=== PATIENT | female | born 1975 ===

== ENCOUNTER → 2016-12-11 | Outpatient (CLI) | payer BC ==
--- NOTE | 2016-12-11 16:45 | MAMMOGRAPHY REPORT ---
UNILATERAL LEFT DIGITAL DIAGNOSTIC MAMMOGRAM TOMOSYNTHESIS WITH CAD AND TARGETED LEFT ULTRASOUND: CLINICAL HISTORY: 40-year-old woman with unknown family history of breast cancer and personal histor y of subpectoral implants presents for follow-up of probably benign punctate microcalcifications tyrone ntified in the anterior left breast and probably benign fibrocystic changes seen on ultrasound. TECHNIQUE: Implant displaced left CC and MLO tomosynthesis images and reconstructed C-view as well a s spot magnification left CC and ML views were obtained. Current study was also evaluated with a [employer] Aided Detection (CAD) system. COMPARISON: Comparison is made to exams dated: 06/03/2016 mammogram, 06/03/2016 ultrasound - [facility], 03/03/2015 mammogram, and 03/03/2015 ultrasound. BREAST COMPOSITION: The tissue of the left breast is extremely dense, which lowers the sensitivity of mammography. FINDINGS: The parenchymal pattern of the left breast is similar to the prior mammogram dated 016. There is stable asymmetry in the subareolar left breast. Microcalcifications are again seen a nd were reevaluated with spot magnification views. In the anterior subareolar left breast, there ar e a few groupings of punctate microcalcifications. The largest grouping in the anterior left breast , 2.7 cm from the nipple measures 2.7 mm. The microcalcifications are unchanged in number and confi guration when comparing to the spot magnification views obtained 06/03/2016 and most likely represen t benign fibrocystic changes. A few other punctate and layering microcalcifications are scattered i n the visualized left breast. However longer stability as needed and repeat spot magnification view s are recommended in 6 months. No focal areas of architectural distortion, new suspicious mass or n ew suspicious microcalcifications are seen on the implant displaced tomosynthesis images. Real-time high-resolution ultrasound was performed throughout the left breast. Numerous anechoic cy sts are again seen. In particular in the 11:00 periareolar left breast, there is a benign anechoic simple cyst measuring 7.1 x 3.9 x 6.6 mm. Another oval parallel circumscribed anechoic cyst is iden tified in the 9:00 left breast, 1 cm from the nipple, measuring 5.6 x 2.1 x 4.3 mm. An anechoic ova l parallel cyst in the 8:00 left breast, 1 cm from the nipple, measures 4.3 x 2.4 x 4.8 mm. A nearl y anechoic cyst is identified in the 2:00 left breast, 3 cm from the nipple, measuring 3.4 x 2.6 x 2 .2 mm. No suspicious solid masses identified. No suspicious solid or cystic mass is identified in the retroareolar left breast on ultrasound. IMPRESSION: ACR-BI-RADS CATEGORY 3: PROBABLY BENIGN, TARGETED ULTRASOUND ACR-BI-RADS CATEGORY 3: FL OBABLY BENIGN 1. A few small groupings of punctate microcalcifications in the anterior subareolar left breast are stable comparing to spot magnification views obtained on 06/03/2016. Comparing back to prior full- field mammograms, many of these microcalcifications were also likely present on the 2014 exam and th ey most likely represent fibrocystic changes. However, another short interval follow-up diagnostic left mammogram including spot magnification views is recommended in 6 months. Annual bilateral mamm ography is also due at that time. 2. There are scattered simple cysts throughout the left breast on ultrasound, without evidence of a suspicious solid mass. Bilateral complete ultrasound could also be performed at the time of follow -up in 6 months for additional screening, given the unknown family history of breast cancer and extr chan dense breasts. These results and recommendations were discussed with the patient at the time of the exam. She tent atively scheduled a follow-up appointment prior to leaving our department. Approximately 10% of breast cancers are not detected with mammography. A negative mammographic repor t should not delay biopsy if a clinically suggestive mass is present. Marcia Saleem M.D. ay/:12/11/2016 15:06:45 Mystery Shopper: Natasha HIRSCH([place])([place]), [facility] letter sent: Follow Up Recommended 3 BI-RADS Code: ACR-BI-RADS Category 3: Probably Benign Ultrasound BI-RADS: ACR-BI-RADS Category 3: P robably Benign
== END | disposition home or self-care (01) ==
LOC: C.MAMM 09:00
PROVIDERS: ATTEND Obstetrics & Gynecology
DX: R92.0 Mammographic microcalcification found on diagnostic imaging of breast (principal); N63 Unspecified lump in breast

== ENCOUNTER → 2017-06-16 | Outpatient (CLI) | payer BC ==
--- NOTE | 2017-06-16 15:51 | MAMMOGRAPHY REPORT ---
BILATERAL DIGITAL DIAGNOSTIC MAMMOGRAM TOMOSYNTHESIS WITH CAD AND BILATERAL ULTRASOUND: 06/16/2017 CLINICAL HISTORY: 41-year-old woman presents for annual bilateral mammography. Also diagnostic follo w-up of probably benign microcalcifications in the anterior left breast, and complete bilateral breas t ultrasound given the history of dense breasts and unknown family history of breast cancer. TECHNIQUE: Bilateral CC and MLO views of the breasts with and without implant displacement views were obtained; tomosynthesis was performed on the implant displaced views. Spot magnification CC and ML views of each breast were also obtained for microcalcification evaluation. Current study was also ev aluated with a Computer Aided Detection (CAD) system. COMPARISON: Comparison is made to exams dated: 12/11/2016 mammogram, 12/11/2016 ultrasound, 06/03/2016 mammogram, 06/03/2016 ultrasound - [facility], 03/03/2015 mammogram, and 03/03/2015 ul trasound. BREAST COMPOSITION: The tissue of both breasts is extremely dense, which lowers the sensitivity of m ammography. FINDINGS: Bilateral subpectoral silicone implants are stable comparing to prior exams. No obvious n ew spiculated or irregular mass, focal area of architectural distortion or developing asymmetry is id entified. There are grouped punctate and amorphous microcalcifications in the 4:00 to 5:00 anterior subareolar left breast that appear stable dating back to the spot magnification views obtained 2015 but not definitely seen on the 03/03/2015 mammograms. The dominant grouping measures 5 mm. Non e definitively demonstrate layering to confirm benign milk of calcium. These calcifications remain i ndeterminate and we discussed options of further close follow-up versus tissue sampling for definitiv e characterization. Spot magnification views were also obtained in the right breast for a small, 2 m m grouping of microcalcifications in the lower outer quadrant. These microcalcifications change shap e and layer on the spot magnification ML view suggesting benign milk of calcium. They appear smudgy on the spot magnification CC view, also suggesting benignity. Real-time high-resolution sonographic evaluation was performed throughout each breast including the r ight and left axilla and retroareolar aspect of the breasts. The breast parenchymal echotexture is h eterogeneousdense. Morphologically normal lymph nodes are identified in the right and left axilla, without evidence of suspicious adenopathy. Several scattered cysts and small cyst clusters are ident ified in both breasts. In the left 2:00 breast, 2 cm from the nipple, there is an oval benign anecho ic simple cyst measuring 4.3 x 3.1 x 4.1 mm, with prominent posterior acoustic enhancement. Another oval anechoic cyst is identified in the 8:00 left breast, 1 cm from the nipple, measuring 3.7 x 2.9 x 5.1 mm. In anechoic oval parallel cyst with posterior acoustic enhancement is identified in the 11: 00 periareolar left breast measuring 9.6 x 4.8 x 6.0 millimeters. The previously observed cysts in t he 1:30 and 2:00 axis of the left breast are not seen on the current exam and have likely resolved. In the 4:00 right breast, 3 cm from the nipple, there is a lobulated cluster of small anechoic cysts measuring 4.7 x 2.4 x 7.6 mm. In the 6:00 right breast, 2 cm from the nipple, a 6.4 x 4.7 x 5.8 mm c ircumscribed anechoic cyst with posterior acoustic enhancement is identified. An oval parallel circu mscribed anechoic cyst in the 9:00 right breast, 14 cm from the nipple measures 8.6 x 4.9 x 6.8 mm, a nd there is another anechoic cyst in the 9:00 right breast, 12 cm from the nipple, measuring 6.3 x 5. 2 x 7.2 mm. A third cyst is seen in the 9:00 right breast, 7 cm from the nipple, measuring 2.6 x 3.2 x 2.8 mm. An oval parallel circumscribed anechoic cyst is seen in the right 10:00 breast, 6 cm from the nipple, measuring 10.7 x 4.7 x 10.6 mm. No suspicious hypoechoic solid mass is seen within eith er breast on ultrasound. IMPRESSION: ACR BI-RADS CATEGORY 4: SUSPICIOUS, ULTRASOUND ACR BI-RADS CATEGORY 4: SUSPICIOUS 1. Stereotactic guided left breast biopsy is recommended for a cluster of indeterminate punctate and amorphous microcalcifications in the lower outer anterior/subareolar left breast. 2. Pending benign pathology results from the left breast stereotactic biopsy, would recommend a shor t interval follow-up right diagnostic mammogram including spot magnification views to ensure stabilit y of a new small cluster of microcalcifications in the lower outer quadrant, although some demonstrat e layering on the spot magnification ML view suggesting benign milk of calcium. 3. Scattered cysts and small clusters of cysts are seen in both breasts during whole breast ultrasou nd, compatible with benign fibrocystic changes. There is no evidence of a suspicious solid mass or s onographic evidence of malignancy. No suspicious lymphadenopathy is seen within the right or left ax illa on ultrasound. Would recommend continued ultrasound screening in one year, pending benign patho logy results from the left breast stereotactic biopsy. These results and recommendations were discussed with the patient at the time of the exam. Approximately 10% of breast cancers are not detected with mammography. A negative mammographic report should not delay biopsy if a clinically suggestive mass is present. Marcia Saleem M.D. ay/:06/16/2017 14:58:12 Strawhat Inspector And Packer: Naila HIRSCH(R)(M), [facility] letter sent: Abnormal 4/5 BI-RADS Code: ACR BI-RADS Category 4: Suspicious Ultrasound BI-RADS: ACR BI-RADS Category 4: Suspici ous
== END | disposition home or self-care (01) ==
LOC: C.MAMM 10:23
PROVIDERS: ATTEND Obstetrics & Gynecology
DX: R92.0 Mammographic microcalcification found on diagnostic imaging of breast (principal)

== ENCOUNTER → 2017-06-26 | Outpatient (CLI) | payer BC ==
--- NOTE | 2017-06-26 13:35 | Discharge Instructions ---
Discharge Instructions Procedure Procedure Date: Jun 26, 2017. Reason for visit: Left Calcs. Discharge Discharge Date: Jun 26, 2017. Discharge Diagnosis: status post breast biopsy Instructions Activity Recommendations: Additional Limitations (see below) Return to School/Work: no limitations Recommended Home Diet: No Limitations Provider Instructions: ACTIVITY RECOMMENDATIONS: * No lifting, pushing, pulling or exercising the affected side for three days. RETURN TO SCHOOL/WORK: * You may return to work/school after the procedure, but do not perform any strenuous activities for 24 to 48 hours. MEDICATIONS: * Tylenol (two 325 mg) every four to six hours if needed for mild pain (if not allergic to Tylenol). DIET: * Resume previous diet. SPECIAL CARE INSTRUCTIONS: * Keep biopsy site dry for 24 hours. May shower after 24 hours, but do not soak (bathe) incision. * May remove Tegaderm (plastic patch) tomorrow AFTER showering. * Leave the steri-strips on for one week. Allow the steri-strips to fall off by themselves. If not off after one week, you may remove them. You may place a Bandaid crosswise over the strips, if desired. * Apply ice 10 minutes on and 10 minutes off as needed. * Wear a bra at bedtime to sleep more comfortably for 2-3 days. * Your referring physician should have the results after approximately 5 to 7 business days. * Call for unusual bleeding, fever, drainage, etc or if you have any questions call during normal business hours or after hours call Dr Chavez, [phone]. FOLLOW UP VISIT: Follow-up with Referring Physician as scheduled. Tanner Lai Recommendations: Call your doctor if: * Temperature above 101 degrees * Pain not relieved by pain medicine ordered * There is increased drainage or redness from any incision * You have any unanswered questions or concerns. Your Doctors Instructions noted above were prepared by provider Krupa Chavez. Patient Signature Section: Patient Instructions Signature Page Melissa Kai Patient (or Guardian) Signature/Date: I have read and understand the instructions given to me by my caregivers. Caregiver/RN/Doctor Signature/Date: The above-named patient and/or guardian has received patient instructions on this date. + Original Patient Signature Page (only) stays with chart. Please make copy for patient.
--- NOTE | 2017-06-27 08:28 | MAMMOGRAPHY REPORT ---
UNILATERAL LEFT DIGITAL DIAGNOSTIC MAMMOGRAM: 06/26/2017 CLINICAL HISTORY: Status post left breast stereotactic biopsy. TECHNIQUE: Postprocedural left CC and ML implant displaced views were obtained. COMPARISON: Comparison is made to exams dated: 06/16/2017 mammogram, 12/11/2016 mammogram, 06/03/2016 ammogram - [facility], and 03/03/2015 mammogram. BREAST COMPOSITION: The tissue of the left breast is extremely dense, which lowers the sensitivity o f mammography. FINDINGS: A new biopsy marker clip is seen in the left breast status post stereotactic biopsy of lef t subareolar/lower outer quadrant anterior calcifications. No significant postbiopsy hematoma is see n. IMPRESSION: POST PROCEDURE IMAGING FOR MARKER PLACEMENT New biopsy marker clip status post left breast stereotactic biopsy. Pathology results are pending. Approximately 10% of breast cancers are not detected with mammography. A negative mammographic report should not delay biopsy if a clinically suggestive mass is present. Krupa Chavez M.D. ah/:06/26/2017 13:55:52 Marketing Liaison: Naila HIRSCH([place])(M), [facility] BI-RADS Code: Post Procedure Imaging For Marker Placement
--- NOTE | 2017-06-27 08:28 | MAMMOGRAPHY REPORT ---
STEREOTACTIC GUIDED BIOPSY LEFT BREAST: 06/26/2017 CLINICAL HISTORY: Indeterminate calcifications in the left subareolar breast. PATIENT CONSENT: The procedure, risks, benefits, and alternatives of stereotactic biopsy with clip pl acement were discussed with the patient, and verbal and written consent was obtained. A timeout was performed immediately prior to the procedure. PROCEDURE DESCRIPTION: With stereotactic guidance, aseptic technique, and lidocaine as a local anesth etic (1% lidocaine to anesthetize the skin and 1% lidocaine with epinephrine to anesthetize the deepe r tissues), the calcifications of concern in the left subareolar breast were sampled multiple times w ith a 9-gauge vacuum-assisted biopsy needle ([employer]). The path of approach was lateral. The sp ecimen radiograph demonstrates calcifications to be present in the samples. A metallic marker clip w as placed at the biopsy site. This was confirmed on postprocedure mammograms. Direct pressure was a pplied at the biopsy site and hemostasis was readily achieved. The patient tolerated the procedure w ithout complication. She was given wound care instructions. COMPARISON: Comparison is made to exams dated: 06/16/2017 mammogram, [facility]2016 [facility]. IMPRESSION: STEREOTACTIC GUIDED BIOPSY Stereotactic biopsy of indeterminate calcifications in the left subareolar breast, with clip placemen t. The patient will receive pathology results from her referring provider. Krupa Chavez M.D. /:06/26/2017 13:36:33 Secured Entrance Monitor: Naila HIRSCH([place])([place]), [facility]
== END | disposition home or self-care (01) ==
LOC: C.MAMM 12:23
PROVIDERS: ATTEND Obstetrics & Gynecology
DX: N60.12 Diffuse cystic mastopathy of left breast (principal); N60.82 Other benign mammary dysplasias of left breast; R92.0 Mammographic microcalcification found on diagnostic imaging of breast; D24.2 Benign neoplasm of left breast

== ENCOUNTER → 2018-02-04 | Outpatient (CLI) | payer OTHER ==
--- NOTE | 2018-02-04 15:25 | MAMMOGRAPHY REPORT ---
UNILATERAL RIGHT DIGITAL DIAGNOSTIC MAMMOGRAM TOMOSYNTHESIS WITH CAD: 02/04/2018 CLINICAL HISTORY: Six-month follow-up of right breast calcifications. History of benign stereotacti c biopsy of left breast calcifications June 2017. The patient reports no new lumps or other compl aints. TECHNIQUE: Breast tomosynthesis in addition to standard 2D mammography was performed. Current study was also evaluated with a Computer Aided Detection (CAD) system. Right CC and MLO 2D and tomosynthes is images and spot magnification right CC and ML views were obtained. Tomosynthesis images were obta ined of the implant displaced views only. COMPARISON: Comparison is made to exams dated: 06/26/2017 mammogram, 06/26/2017 stereotactic biopsy, ultrasound, 06/16/2017 mammogram, 12/11/2016 mammogram, and 12/11/2016 ultrasound - [facility]. BREAST COMPOSITION: The tissue of the right breast is extremely dense, which lowers the sensitivity of mammography. FINDINGS: Spot magnification views of the right breast demonstrate a small 2 mm cluster of calcificat ions within the right lower outer quadrant at approximately 8:00. The calcifications are smudgy and amorphous on the cc view and demonstrate layering on the lateral view, and are consistent with benign milk of calcium. The calcifications are not significantly changed compared to the May 2017 ex am. The remainder of the right breast is stable compared to prior exams, without suspicious masses, calcifications, or areas of architectural distortion noted. The subpectoral right silicone implant i s stable in appearance. IMPRESSION: ACR BI-RADS CATEGORY 2: BENIGN The small cluster of calcifications in the right 8:00 breast is benign and compatible with milk of ca lcium. There is no mammographic evidence of malignancy. Return to annual mammogram screening schedul e is recommended, due May 2018. The patient has been verbally notified of the results. Approximately 10% of breast cancers are not detected with mammography. A negative mammographic report should not delay biopsy if a clinically suggestive mass is present. Krupa Chavez M.D. /:02/04/2018 11:50:23 Bottom Saw Operator: Naila HIRSCH([place])([place]), [facility] letter sent: Normal 1/2 BI-RADS Code: ACR BI-RADS Category 2: Benign
== END | disposition home or self-care (01) ==
LOC: C.MAMM 11:13
PROVIDERS: ATTEND Obstetrics & Gynecology
DX: Z09 Encounter for follow-up examination after completed treatment for conditions other than malignant neoplasm (principal); Z98.82 Breast implant status; R92.1 Mammographic calcification found on diagnostic imaging of breast